=== PATIENT | female | born 1990 ===

== ENCOUNTER 2017-01-02 03:24 | Emergency (ER) | payer SELFPAY ==
[2017-01-02 03:41] VITALS: BP 150/94; PULSE 90; RESP 16; TEMP 98.5; O2SAT 98
[2017-01-02] MEDS ORDERED: Sodium Chloride 0.9% 1,000 ML IV STA (03:46)
[2017-01-02 04:24] LABS: RBC URINE 1 /hpf (0-3); URINE BILIRUBIN NEGATIVE (NEGATIVE); URINE BLOOD NEGATIVE (NEGATIVE); URINE COLOR COLORLESS (YELLOW); URINE GLUCOSE (UA) NEG (Normal); URINE KETONE NEGATIVE (NEGATIVE); URINE LEUKOCYTE ESTERASE NEG Leu/uL (Negative); URINE PROTEIN NEGATIVE (NEGATIVE); URINE UROBILINOGEN 0.2-1.0 mg/dL (0.2-1.0); WBC URINE < 1 /hpf (0-5)
[2017-01-02 04:25] LABS: BASO % 0.3 % (0.0-2.0); EOS % 0.5 % (0.0-4.0); HEMATOCRIT 40.1 % (34.0-47.0); LYMPH % 25.2 % (20.0-40.0); MEAN CELL VOLUME 81.7 fl (81.0-99.0); MEAN CORPUSCULAR HEMOGLOBIN 28.2 pg (27.0-31.0); MEAN CORPUSCULAR HGB CONC 34.5 g/dL (33.0-37.0); MEAN PLATELET VOLUME 7.8 fl (7.2-11.7); MONO # 0.6 K/uL (0.0-0.8); MONO % 7.9 % (0.0-10.0); NEUT # 5.2 K/uL (1.8-7.0); NEUT % 66.1 % (50.0-75.0); RED CELL DISTRIBUTION WIDTH 13.1 % (11.5-14.5); WHITE BLOOD COUNT 7.9 K/uL (4.8-10.8)
--- NOTE | 2017-01-02 04:27 | ED PDOC ---
HPI: Abdomen Time Seen by Provider: 01/02/17 03:38 Chief Complaint (Nursing): Abdominal Pain Chief Complaint (Provider): Abdominal Pain History Per: Patient History/Exam Limitations: no limitations Onset/Duration Of Symptoms: Hrs (since earlier today) Outside of [place] travel?: No Current Symptoms Are (Timing): Still Present Location Of Pain/Discomfort: Suprapubic Quality Of Discomfort: "Pain" Associated Symptoms: Nausea, Vomiting, Other (Dizziness) Additional Complaint(s): 26 year old female presents to ED with complaints of lower abdominal pain since earlier today and started her menstrual period today. (+) dizziness, nausea, vomiting x1 episode (non-bloody, non-bilious), urinary frequency, and sore throat. (-) vaginal discharge or dysuria. PCP: Jennifer RHOADES Last Menstral Period: started 01/02/2017 Past Medical History Reviewed: Historical Data, Nursing Documentation, Vital Signs Vital Signs: Last Vital Signs Temp 98.5 F 01/02/17 03:38 Pulse 90 01/02/17 03:38 Resp 16 01/02/17 03:38 BP 150/94 H 01/02/17 03:38 Pulse Ox 98 01/02/17 04:31 - Medical History PMH: No Chronic Diseases - Surgical History Surgical History: No Surg Hx - Family History Family History: States: No Known Family Hx - Social History Current smoker - smoking cessation education provided: No Ex-Smoker (has not smoked in the last 12 months): No Alcohol: None Drugs: Denies - Home Medications Home Medications: Ambulatory Orders Medication Instructions Recorded Ketorolac Tromethamine [Toradol] 10 mg PO Q6 #30 tab 01/02/17 - Allergies Allergies/Adverse Reactions: Allergies Allergy/AdvReac Type Severity Reaction Status Date / Time No Known Allergies Allergy Verified 01/02/17 03:38 Review of Systems ROS Statement: Except As Marked, All Systems Reviewed And Found Negative ENT: Positive for: Throat Pain Gastrointestinal: Positive for: Nausea, Vomiting (x1), Abdominal Pain (lower abdominal pain) Genitourinary Female: Positive for: Frequency. Negative for: Dysuria, Vaginal Discharge Neurological: Positive for: Dizziness Physical Exam - Reviewed Nursing Documentation Reviewed: Yes Vital Signs Reviewed: Yes - Physical Exam Appears: Positive for: Non-toxic, No Acute Distress Skin: Positive for: Normal Color, Warm, Dry Eye Exam: Positive for: Normal appearance ENT: Positive for: Normal ENT Inspection Neck: Positive for: Normal Cardiovascular/Chest: Positive for: Regular Rate, Rhythm. Negative for: Murmur Respiratory: Positive for: Normal Breath Sounds. Negative for: Respiratory Distress Gastrointestinal/Abdominal: Positive for: Soft, Tenderness (Mild TTP of suprapubic and LLQ) Back: Positive for: Normal Inspection Extremity: Positive for: Normal ROM. Negative for: Deformity Neurologic/Psych: Positive for: Alert, Oriented. Negative for: Motor/Sensory Deficits - Laboratory Results Result Diagrams: 01/02/17 04:17 01/02/17 04:17 - ECG O2 Sat by Pulse Oximetry: 98 (RA) Pulse Ox Interpretation: Normal Medical Decision Making Medical Decision Makin Initial impression: possible cystitis v ovarian cyst Initial plan: * Labs * UPreg * UDip * NS IV * Toradol 15mg IVP * Zofran Inj 4mg IVP * Influenza A B * UA * Re-eval 5AM: Pt. feeling much better, states she no longer feels nauseated and ambulated to the bathroom without pain. Scribe Attestation: Documented by Erma Alba acting as a scribe for Laci Mederos MD. Scribe Attestation: All medical record entries made by the Scribe were at my direction and personally dictated by me. I have reviewed the chart and agree that the record accurately reflects my personal performance of the history, physical exam, medical decision making, and the department course for this patient. I have also personally directed, reviewed, and agree with the discharge instructions and disposition. Disposition - Clinical Impression Clinical Impression: Abdominal cramps - Patient ED Disposition Is Patient to be Admitted: No - Disposition [facility] Disposition: Routine/Home Disposition Time: 05:22 Condition: IMPROVED Prescriptions: Ketorolac Tromethamine [Toradol] 10 mg PO Q6 #30 tab Instructions: [place] (ED), Acute Abdominal Pain (ED) Forms: [facility] (Telugu) Print Language: MALAWIAN
[2017-01-02 04:48] LABS: BLOOD UREA NITROGEN 9 mg/dl (7-17); CALCIUM 9.2 mg/dL (8.4-10.2); CARBON DIOXIDE 25 mmol/L (22-30); CHLORIDE 107 mmol/L (98-107); GFR AFRICAN-AMERICAN > 60; GLUCOSE,RANDOM 100 mg/dL (65-105); POTASSIUM 3.5 MMOL/L (3.6-5.0); SODIUM 142 mmol/l (132-148)
== END 2017-01-02 05:49 | disposition home or self-care (01) ==
LOC: H.ER 03:24
DX: R10.9 Unspecified abdominal pain (principal); R42 Dizziness and giddiness
CPT/HCPCS: 80048; 81003; 81025; 85025; 87804; 96374; 96375; 99283; J1885; J2405; J7040

== ENCOUNTER 2017-01-02 12:20 | Inpatient (IN) | payer OTHER ==
[2017-01-02 12:29] VITALS: BMI 29.2
--- NOTE | 2017-01-02 12:35 | ED PDOC ---
HPI: Psych/Substance Abuse Time Seen by Provider: 01/02/17 12:41 Chief Complaint (Nursing): Psychiatric Evaluation Chief Complaint (Provider): Psych evaluation History/Exam Limitations: no limitations Onset/Duration Of Symptoms: Hrs Additional Complaint(s): Patient is a 26 y/o female with a past medical history of depression and rheumatoid arthritis brought to the emergency department by EMS for a psychiatric evaluation. Patient reports being terminated from her job today. At her (former) place of employment, EMS found her locked in a bathroom holding a knife. Admits to wanting to hurt herself. Denies homicidal ideation or other complaints. Of note, patient also believes that she is and is complaining of abdominal pain. She was last seen early this morning for this same complaint and was not found to be . Was also diagnosed with abdominal cramps. PCP: none provided. Past Medical History Reviewed: Historical Data, Nursing Documentation, Vital Signs Vital Signs: Last Vital Signs Temp 98.0 F 01/02/17 12:27 Pulse 112 H 01/02/17 12:27 Resp 16 01/02/17 12:27 BP 158/53 H 01/02/17 12:27 Pulse Ox 98 01/02/17 12:27 - Medical History PMH: Arthritis (rheumatoid), Depression - Surgical History Surgical History: No Surg Hx - Family History Family History: States: Unknown Family Hx - Social History Current smoker - smoking cessation education provided: No Ex-Smoker (has not smoked in the last 12 months): No Alcohol: None Drugs: Denies - Home Medications Home Medications: Ambulatory Orders Medication Instructions Recorded Ketorolac Tromethamine [Toradol] 10 mg PO Q6 #30 tab 01/02/17 - Allergies Allergies/Adverse Reactions: Allergies Allergy/AdvReac Type Severity Reaction Status Date / Time No Known Allergies Allergy Verified 01/02/17 12:27 Review of Systems ROS Statement: Except As Marked, All Systems Reviewed And Found Negative Psych: Positive for: Suicidal ideation. Negative for: Other (homicidal ideation ) Physical Exam - Reviewed Nursing Documentation Reviewed: Yes Vital Signs Reviewed: Yes - Physical Exam Appears: Positive for: Non-toxic (noted to be very tearful and screaming for her mother and father in the ED) Head Exam: Positive for: ATRAUMATIC, NORMAL INSPECTION, NORMOCEPHALIC Skin: Positive for: Normal Color, Warm, Dry Eye Exam: Positive for: Normal appearance Neck: Positive for: Normal Cardiovascular/Chest: Positive for: Regular Rate, Rhythm Respiratory: Negative for: Accessory Muscle Use, Respiratory Distress Gastrointestinal/Abdominal: Positive for: Normal Exam, Soft. Negative for: Tenderness Extremity: Positive for: Normal ROM Neurologic/Psych: Positive for: Alert, Oriented (x3) - Laboratory Results Result Diagrams: 01/02/17 14:10 01/02/17 14:10 Urine POC: Negative Urine dip results: Positive for: Leukocyte Esterase (trace), Blood (moderate). Negative for: Nitrate, Ketones, Glucose, Bilirubin - ECG O2 Sat by Pulse Oximetry: 98 (RA) Pulse Ox Interpretation: Normal - Progress ED Course And Treament: seen by crisis admitted by dr. acosta for schizophrenia nonspecified Medical Decision Making Medical Decision Making: Time: 12:40 Initial impression: Psych evaluation Initial plan: * Labs * ED Urine Dipstick * ED Urine * Urinalysis * 1:1 Sitter Scribe Attestation: Documented by Barb Hanks, acting as a scribe for ALKA Galvez. Provider Scribe Attestation: All medical record entries made by the Scribe were at my direction and personally dictated by me. I have reviewed the chart and agree that the record accurately reflects my personal performance of the history, physical exam, medical decision making, and the department course for this patient. I have also personally directed, reviewed, and agree with the discharge instructions and disposition. Disposition - Clinical Impression Clinical Impression: Schizophrenia - Patient ED Disposition Is Patient to be Admitted: Yes - Disposition Disposition Time: 13:40 Condition: FAIR - Pt Status Changed To: Hospital Disposition Of: Inpatient - Admit Certification Admit to Inpatient:: After my assessment, the patient will require hospitalization for at least two midnights. This is because of the severity of symptoms shown, intensity of services needed, and/or the medical risk in this patient being treated as an outpatient.
[2017-01-02 13:27] LABS: RBC URINE 2 /hpf (0-3); URINE BILIRUBIN NEGATIVE (NEGATIVE); URINE BLOOD MODERATE (NEGATIVE); URINE COLOR STRAW (YELLOW); URINE GLUCOSE (UA) NEG (Normal); URINE KETONE NEGATIVE (NEGATIVE); URINE LEUKOCYTE ESTERASE NEG Leu/uL (Negative); URINE PROTEIN NEGATIVE (NEGATIVE); URINE UROBILINOGEN 0.2-1.0 mg/dL (0.2-1.0); WBC URINE 1 /hpf (0-5)
[2017-01-02 14:29] LABS: BASO % 0.4 % (0.0-2.0); EOS % 0.1 % (0.0-4.0); HEMATOCRIT 42.4 % (34.0-47.0); LYMPH # 1.1 K/uL (1.0-4.3); MEAN CELL VOLUME 82.7 fl (81.0-99.0); MEAN CORPUSCULAR HEMOGLOBIN 28.2 pg (27.0-31.0); MEAN CORPUSCULAR HGB CONC 34.1 g/dL (33.0-37.0); MEAN PLATELET VOLUME 7.9 fl (7.2-11.7); MONO # 0.4 K/uL (0.0-0.8); MONO % 4.9 % (0.0-10.0); NEUT # 6.5 K/uL (1.8-7.0); NEUT % 80.6 % (50.0-75.0); NRBC % 0.1 % (0.0-0.0); RED CELL DISTRIBUTION WIDTH 13.2 % (11.5-14.5); WHITE BLOOD COUNT 8.1 K/uL (4.8-10.8)
[2017-01-02 14:39] LABS: ALB/GLOB RATIO 1.5 (1.0-2.1); ALCOHOL SERUM < 10 mg/dl (0-10); ALKALINE PHOSPHATASE 81 U/L (38-126); ALT/SGPT 36 U/L (9-52); AST/SGOT 24 U/L (14-36); BILIRUBIN,TOTAL 0.5 mg/dl (0.2-1.3); BLOOD UREA NITROGEN 8 mg/dl (7-17); CALCIUM 9.1 mg/dL (8.4-10.2); CARBON DIOXIDE 20 mmol/L (22-30); CHLORIDE 107 mmol/L (98-107); GFR AFRICAN-AMERICAN > 60; GLUCOSE,RANDOM 144 mg/dL (65-105); POTASSIUM 3.8 MMOL/L (3.6-5.0); SODIUM 144 mmol/l (132-148); TOTAL PROTEIN 7.6 G/DL (6.3-8.2)
[2017-01-02 15:08] LABS: THYROID STIMULATING HORMONE 2.03 mIU/ML (0.46-4.68)
[2017-01-02] MEDS ORDERED: Sodium Chloride 0.9% 1,000 ML IV STA (17:50)
[2017-01-02] MEDS ORDERED: Iohexol 300 100 ML IJ ONE (19:26)
[2017-01-02] MEDS ORDERED: Sodium Chloride 0.9% 50 ML IV ONE (19:26)
--- NOTE | 2017-01-02 20:55 | CT ---
EXAM: CT Abdomen and Pelvis With Intravenous Contrast CLINICAL HISTORY: 26 years old, female; Pain; Abdominal pain; Localized; Right lower quadrant (rlq); Additional info: Rlq pain R/O appendicitis. Sent phy. Doc. TECHNIQUE: Axial computed tomography images of the abdomen and pelvis with intravenous contrast. All CT scans at this facility use one or more dose reduction techniques, viz.: automated exposure control; ma/kV adjustment per patient size (including targeted exams where dose is matched to indication; i.e. head); or iterative reconstruction technique. Coronal and sagittal reformatted images were created and reviewed. CONTRAST: 90 mL of [id number] administered intravenously. COMPARISON: No relevant prior studies available. FINDINGS: Lower thorax: No acute findings. ABDOMEN: Liver: Unremarkable. No mass. Gallbladder and bile ducts: No calcified stones. No ductal dilation. Pancreas: No ductal dilation. No mass. Spleen: No splenomegaly. Adrenals: No mass. Kidneys and ureters: No mass. No hydronephrosis. Stomach and bowel: No definite mural thickening. No obstruction. Appendix: Normal caliber. No definite inflammation. PELVIS: Bladder: Unremarkable. Reproductive: Unremarkable as visualized. ABDOMEN and PELVIS: Intraperitoneal space: Trace free fluid within pelvis. No free air. Bones/joints: No acute fracture. Soft tissues: Linear stranding within subcutaneous tissues. Vasculature: Varices within LEFT midabdomen. No aneurysm. Lymph nodes: No pathologically enlarged lymph nodes. IMPRESSION: 1. No definite CT evidence of appendicitis. 2. Incidental/non-acute findings are described above.
--- NOTE | 2017-01-03 05:16 | ED PDOC ---
- Laboratory Results Result Diagrams: 01/02/17 14:10 01/02/17 14:10 Urine POC: Negative - ECG O2 Sat by Pulse Oximetry: 100 - Progress ED Course And Treament: Case endorsed to inspector automatic typewriter from Cade SALINAS pending available bed/transfer to [facility] 1:30 Patient refusing to voluntarily sign in to [facility] psych unit. Patient will now be screened by [facility]. 3:00 Patient given Ativan for agitation 4:30 Patient sleeping Disposition - Clinical Impression Clinical Impression: Schizophrenia - POA Present On Arrival: None - Disposition Disposition: Transfer of Care Disposition Time: 06:00 Condition: FAIR Patient Signed Over To: Laci Mederos Handoff Comments: pending [facility] screening
--- NOTE | 2017-01-03 08:45 | ED PDOC ---
- Laboratory Results Result Diagrams: 01/02/17 14:10 01/02/17 14:10 Urine POC: Negative - ECG O2 Sat by Pulse Oximetry: 100 (RA) Pulse Ox Interpretation: Normal Medical Decision Making Medical Decision Making: Time: 7:00 --Patient was signed out by Dr. Rosa M Aguero to me pending [facility] evaluation because patient did not sign consent for admission in [place]. 15:[address] over to Dr. Delgado pending [facility] evaluation. Scribe Attestation: Documented by Danis Shah and Babita White, acting as a scribe for Fuentes Epperson MD Provider Scribe Attestation: All medical record entries made by the Scribe were at my direction and personally dictated by me. I have reviewed the chart and agree that the record accurately reflects my personal performance of the history, physical exam, medical decision making, and the department course for this patient. I have also personally directed, reviewed, and agree with the discharge instructions and disposition. Disposition - Clinical Impression Clinical Impression: Schizophrenia - POA Present On Arrival: None - Disposition Disposition: Transfer of Care Disposition Time: 15:00 Condition: FAIR Patient Signed Over To: Marina Delgado
--- NOTE | 2017-01-03 09:01 | RAD ---
PROCEDURE: CHEST RADIOGRAPH, 1 VIEW HISTORY: routine COMPARISON: None available. FINDINGS: LUNGS: Clear. PLEURA: No pneumothorax or pleural fluid seen. CARDIOVASCULAR: Normal. OSSEOUS STRUCTURES: No significant abnormalities. VISUALIZED UPPER ABDOMEN: Normal. OTHER FINDINGS: None. IMPRESSION: No active disease. Please note: No preliminary report/ innterpretation of this examination provided by emergency department personnel.
--- NOTE | 2017-01-03 14:55 | CP.PCM.CON ---
History of Present Illness - History of Present Illness History of Present Illness: PATIENT WITHOUT PREVIOUS PSYCHIATRIC DIAGNOSIS OR TREATMENT, KEITH COME TO [facility] FROM [place] ABOUT YEAR AND A HALF AGO CURRENTLY LIVING WITH BOYFRIEND, PATIENT HAS BEEN WORKING IN A [employer] AND HAS BEEN HAVING CONFLICTS AT WORK RECENTLY GOT FIRED PATIENT BECAME SINCE THEN IRRITABLE DEPRESSED AND DISORGANIZED SHE WENT BACK TO THE [employer] SHE REQUESTED TO FILE AN APPEAL WHEN ASKED TO LEAVE SHE WENT TO THE BATHROOM AND HELD AKNIFE TO HER NECK PATIENT IN THE ER HAS BEEN MANIC, HYPERACTIVE OVERPRODUCTIVE SPEECH DISORGANIZED THOUGHT PROCESS TANGENTIAL , PATIENT REFUSED TO STAY IN HOSPITAL FOR TREATMENT Past Patient History - Past Social History Alcohol: None Drugs: Denies - CARDIAC Hx Cardiac Disorders: No (Pt denies) Hx Hypertension: No (Pt denies) - PULMONARY Hx Tuberculosis: No (Pt denies) - NEUROLOGICAL HX Cerebrovascular Accident: No (Pt denies) Hx Seizures: No (Pt denies) - ENDOCRINE/METABOLIC Hx Endocrine Disorders: No - HEMATOLOGICAL/ONCOLOGICAL Hx Cancer: No (Pt denies) Hx Human Immunodeficiency Virus (HIV): No (Pt denies) - MUSCULOSKELETAL/RHEUMATOLOGICAL Hx Arthritis: Yes (rheumatoid) - GASTROINTESTINAL Hx Gastrointestinal Disorders: No - GENITOURINARY/GYNECOLOGICAL Hx Sexually Transmitted Disorders: No (Pt denies) - PSYCHIATRIC Hx Depression: Yes - SURGICAL HISTORY Hx Surgeries: No - ANESTHESIA Hx Anesthesia: No Meds Allergies/Adverse Reactions: Allergies Allergy/AdvReac Type Severity Reaction Status Date / Time No Known Allergies Allergy Verified 01/02/17 12:27 Physical Exam - Psychiatric Exam Psychiatric exam: Agitated, Anxious Additional comments: PATIENT ON EVALUATION UNCOOPERATIVE PARTIAL EYE CONTACT SPEECH DISORGANIZED THOUGHT FORM CIRCUMSTANTIAL AND TANGENTIAL DELUSIONS OF PERSECUTION ELLICITED PATIENT REPORTED AUDITORY HALLUCINATIONS HEARING HER PARENTS TALKING TO HER BUT DENIED COMMAND HALLUCINATIONS PATIENT T AWAKE , DROWZY ORIENTED TO PERSON ONLY POOR INSIGHT AND POOR JUDGMENT Results - Vital Signs Recent Vital Signs: Last Vital Signs Temp 97.5 F L 01/03/17 09:05 Pulse 90 01/03/17 09:05 Resp 16 01/03/17 09:05 BP 127/74 01/03/17 09:05 Pulse Ox 100 01/03/17 09:05 - Labs Result Diagrams: 01/02/17 14:10 01/02/17 14:10 Labs: Laboratory Results - last 24 hr 01/02/17 01/02/17 01/02/17 14:10 14:10 20:30 Sodium 144 Potassium 3.8 Chloride 107 Carbon Dioxide 20 L Anion Gap 21 H BUN 8 Creatinine 0.6 L Est GFR ( Amer) > 60 Est GFR (Non-Af Amer) > 60 Random Glucose 144 H Calcium 9.1 Total Bilirubin 0.5 AST 24 ALT 36 Alkaline Phosphatase 81 Total Protein 7.6 Albumin 4.6 Globulin 3.0 Albumin/Globulin Ratio 1.5 Lipase 134 TSH 3rd Generation 2.03 Salicylates < 1.0 Acetaminophen < 10.0 L Alcohol, Quantitative < 10 Assessment & Plan - Assessment and Plan (Free Text) Assessment: PSYCHOTIC DISORDER RULE OUT BIPOLAR DISORDER MOST RECENT EPISODE MANIC SEVERE WITH PSYCHOTIC FEATURES AT THE CURRENT TIME RECOMMEND ATIVAN 1MG Q6 PRN FOR ANXIETY HALDOL 2MG Q6 PRN FOR AGITATION BENADRYL 25 MG Q6 PRN FOR EPS
--- NOTE | 2017-01-03 15:09 | ED PDOC ---
- Laboratory Results Result Diagrams: 01/02/17 14:10 01/02/17 14:10 Urine POC: Negative - ECG O2 Sat by Pulse Oximetry: 100 (RA) Medical Decision Making Medical Decision Makin:00 Patient signed over to me by Dr. Epperson pending [facility] evaluation. 1800 Pt stable 1999 Accepted by [facility]. Pending bed availability [address] Roach. Pending bed availability at [facility] for involuntary psych admission. Stable. Scribe Attestation: Documented by Babita White, acting as a scribe for Marina Delgado MD. Provider Scribe Attestation: All medical record entries made by the Scribe were at my direction and personally dictated by me. I have reviewed the chart and agree that the record accurately reflects my personal performance of the history, physical exam, medical decision making, and the department course for this patient. I have also personally directed, reviewed, and agree with the discharge instructions and disposition. Disposition - Clinical Impression Clinical Impression: Schizophrenia - POA Present On Arrival: None - Disposition Disposition: Transfer of Care Disposition Time: 15:00 Condition: STABLE
[2017-01-03 23:48] VITALS: RESP 16
--- NOTE | 2017-01-04 01:10 | ED PDOC ---
- Laboratory Results Result Diagrams: 01/02/17 14:10 01/02/17 14:10 Urine POC: Negative - ECG O2 Sat by Pulse Oximetry: 98 Medical Decision Making Medical Decision Makin:00. Patient signed over to me by Dr. Delgado pending [facility] bed availability. 07:00. Patient signed over to the Dr. Zimmer. Pending bed availability at [facility]. Scribe Attestation: Documented by Tank Tavares, acting as a scribe for Ty Roach. Provider Scribe Attestation: All medical record entries made by the Scribe were at my direction and personally dictated by me. I have reviewed the chart and agree that the record accurately reflects my personal performance of the history, physical exam, medical decision making, and the department course for this patient. I have also personally directed, reviewed, and agree with the discharge instructions and disposition. Disposition - Clinical Impression Clinical Impression: Schizophrenia - POA Present On Arrival: None - Disposition Disposition: Transfer of Care Disposition Time: 07:00 Condition: FAIR Patient Signed Over To: Jodee Zimmer
[2017-01-04 10:15] VITALS: O2SAT 100
[2017-01-04 10:56] VITALS: BP 120/73; PULSE 90; TEMP 98.9
== END 2017-01-04 12:56 | DRG 430 ==
LOC: H.ER 12:20 → H.ERHOLD 13:44
PROVIDERS: ADMIT Psychiatry & Neurology Psychiatry; ATTEND Psychiatry & Neurology Psychiatry
DX: F20.9 Schizophrenia, unspecified (principal); F41.9 Anxiety disorder, unspecified; K59.00 Constipation, unspecified; Z53.29 Procedure and treatment not carried out because of patient's decision for other reasons